=== PATIENT | male | born 1965 | race Two or more races ===

== ENCOUNTER → 2020-06-15 10:38 | Outpatient (BNVA) | payer SELFPAY | PROVIDERS: PCP Internal Medicine; Visit Provider Physician Assistant Medical | DX: Z02.79 Encounter for issue of other medical certificate (principal) ==

== ENCOUNTER → 2021-06-15 13:03 | Outpatient (BNVA) | payer SELFPAY | PROVIDERS: PCP Internal Medicine; Visit Provider Physician Assistant Medical | DX: Z02.79 Encounter for issue of other medical certificate (principal) ==

== ENCOUNTER → 2022-06-02 10:16 | Outpatient (BNVA) | payer SELFPAY | PROVIDERS: PCP Internal Medicine; Visit Provider Physician Assistant Medical | DX: Z02.79 Encounter for issue of other medical certificate (principal) ==

== ENCOUNTER → 2023-06-15 08:35 | Outpatient (BNVA) | payer SELFPAY | PROVIDERS: PCP Internal Medicine; Visit Provider Physician Assistant | DX: Z02.79 Encounter for issue of other medical certificate (principal) ==

== ENCOUNTER → 2024-06-26 08:33 | Outpatient (BNVA) | payer SELFPAY | PROVIDERS: PCP Internal Medicine; Visit Provider Physician Assistant | DX: Z02.79 Encounter for issue of other medical certificate (principal) ==

== ENCOUNTER 2024-11-12 21:07 | Emergency (ER) | payer OTHER, SELFPAY ==
--- NOTE | ~2024-11-12 | XR_ITS ---
CLINICAL HISTORY: sudden onset of pain with edema 2 view right foot Comparison: None Findings: Bones intact. No dislocations. No significant arthritic change or erosions. No ankle effusion. No radiopaque foreign body. IMPRESSION: 1. No acute findings. This document has been electronically signed by: Gildardo Prabhakar MD on 11/13/2024 00:56:44
--- NOTE | ~2024-11-12 | XR_ITS ---
CLINICAL HISTORY: sudden onset of pain with edema 3 view right ankle Comparison: None Findings: There is an enthesophyte at the insertion of the plantar fascia on the inferior calcaneus. No significant loss of joint space, osteophytes, or erosions. No ankle effusion. No radiopaque foreign body. IMPRESSION: 1. No acute findings. This document has been electronically signed by: Gildardo Prabhakar MD on 11/13/2024 00:56:18
[2024-11-12 21:44] VITALS: BP 168/78; PULSE 95; RESP 18; TEMP 36.9; O2SAT 98; BMI 27.8
[2024-11-12 22:33] LABS: Basophils Absolute Auto 0.1 X10*3/uL (0.0-0.2); Basophils Percent Auto 0.6 % (0-2); Eosinophils Absolute Auto 0.1 X10*3/uL (0.0-0.4); Eosinophils Percent Auto 0.7 % (0-4); Hematocrit 45.7 % (42.0-52.0); Hemoglobin 16.8 g/dl (14.0-18.0); Imm Gran Abs Auto 0.08 X10*3/uL (0.00-0.03); Imm Gran Pct Auto 0.8 % (0.0-0.4); Lymphocytes Absolute Auto 2.1 X10*3/uL (1.2-4.9); Lymphocytes Percent Auto 19.7 % (20-40); MANUAL DIFF FLAG NO; Mean Corpuscular HGB Conc 36.8 g/dl (31.0-36.0); Mean Corpuscular Hemoglobin 30.5 pg (27.0-33.0); Mean Corpuscular Volume 82.9 fL (80.0-98.0); Mean Platelet Volume 11.7 fL (9.4-12.4); Monocytes Absolute Auto 0.8 X10*3/uL (0.1-1.2); Monocytes Percent Auto 7.8 % (2-11); Neutrophils Absolute Auto 7.3 x10*3/uL (2.0-8.3); Neutrophils Percent Auto 70.4 % (45-73); Platelet Count 193 X10*3/uL (160-400); Red Blood Count 5.51 X10*6/uL (4.60-5.80); Red Cell Distribution Width 11.9 % (11.0-16.0); White Blood Count 10.4 X10*3/uL (4.8-10.8)
[2024-11-12 22:35] LABS: Lactic Acid 1.4 mmol/L (0.5-2.0)
[2024-11-12 22:55] LABS: Alanine Aminotransferase 32 U/L (0-40); Albumin Level 4.2 g/dL (3.5-5.0); Alkaline Phosphatase 126 U/L (39-117); Anion Gap 13 (12-20); Aspartate Amino Transferase 18 U/L (5-37); Bilirubin Total 0.7 mg/dL (0.0-1.0); Blood Urea Nitrogen 14 mg/dL (9-16); Calcium 9.9 mg/dL (8.4-10.2); Carbon Dioxide 27 mmol/L (22-29); Chloride 101 mmol/L (96-108); Creatinine Clr Calc Pharmacy 75.7; Estimated Glomerular Filt Rate > 60; Glucose Random 352 mg/dL (60-115); Sodium 137 mmol/L (135-145); Total Protein 8.1 g/dL (6.5-8.0)
--- NOTE | 2024-11-12 22:55 | PC.NURSE ---
Critical glucose taken from lab 352. No provider sign up yet
[2024-11-12 23:11] LABS: Appearance Urine Clear; Color Urine Yellow; Glucose Urine UA >=1000 mg/dL (Negative); Leukocyte Esterase Urine Negative (Negative); Nitrite Urine Negative (Negative); PH 7.5 (5.0-9.0); Specific Gravity - Urine >= 1.030 (1.005-1.025); UMIC TRIGGER UACC YES; Urine Blood Negative (Negative); Urine Ketones Trace mg/dL (Negative); Urine Protein Negative (Neg-Trace)
[2024-11-12 23:21] LABS: Bacteria Urine None Seen (None Seen); Hyaline Casts Urine 0-2 /LPF (0-2); RBC Urine 0-2 /HPF (0-2); Squamous Epithelial Cell Urine 0-2 /HPF (0-2); WBC Urine 0-5 /HPF (0-5)
[2024-11-13 00:27] VITALS: BP 166/92; PULSE 80; RESP 18; TEMP 37; O2SAT 97
--- NOTE | 2024-11-13 01:07 | ED_ITS ---
HPI - General Adult General Chief complaint: Extremity Problem Stated complaint: R foot pain Time Seen by Provider: 11/13/24 00:41 Source: patient, RN notes reviewed and old records reviewed Mode of arrival: ambulatory Limitations: no limitations History of Present Illness ED Provider: Nery HUA narrative: 59 old male past medical history significant for diabetes, noncompliant with his metformin presents for evaluation of right foot redness extending from his right 3rd toe up to his ankle. He denies any pain to the area. He denies any fevers, chills pain Denies any injuries. He denies any calf pain, knee pain Related Data Previous Rx's ?Medication ?Instructions ?Recorded cephalexin 500 mg tablet 500 mg PO QID #40 tabs 11/13/24 doxycycline hyclate 100 mg tablet 100 mg PO BID #20 tabs 11/13/24 metformin 1,000 mg tablet 1,000 mg PO BID #60 tabs 11/13/24 Allergies Allergy/AdvReac Type Severity Reaction Status Date / Time No Known Allergies Allergy Verified 11/12/24 21:44 [No Known Allergies*] Review of Systems 2 Constitutional: Constitutional: Denies body ache(s), Denies chills and Denies fever(s) Eyes: Eyes: Denies blurry vision ENT: Denies vertigo Cardiovascular: Cardiovascular: Denies chest pain, Denies chest pain at rest and Denies dyspnea Respiratory: Respiratory: Denies cough and Denies dyspnea Gastrointestinal: Gastrointestinal: Denies abdominal pain Musculoskeletal: Musculoskeletal: Reports arthralgias, Reports joint swelling and Denies limited range of motion Integumentary/Breasts: Skin/Breast: Reports erythema Neurologic: Denies vertigo PMFSH Social History Social History Smoked in Last 30 Days: No Use of substances other than those prescribed or required for medical reasons: No Advance Directives: No Advance Directives Information Provided: No Do you have a plan to hurt others: No Plan Physical Exam ED Vital Signs: Vital Signs - 24 hr 11/12/24 21:44 11/13/24 00:27 11/13/24 01:23 Temperature 98.4 F 98.6 F 98.0 F Pulse Rate 95 80 79 Respiratory Rate 18 18 16 Blood Pressure 168/78 H 166/92 H 158/90 H Pulse Oximetry 98 97 96 Oxygen Delivery Method Room Air Room Air Room Air 11/13/24 01:24 Temperature 98.0 F Pulse Rate 79 Respiratory Rate 16 Blood Pressure 158/90 H Pulse Oximetry 96 Oxygen Delivery Method Room Air BMI result Body Mass Index 27.8 Const General: healthy appearing, comfortable, no acute distress, alert and awake Nutritional Appearance: well nourished Orientation/consciousness: patient oriented x3 HENMT Head: Yes normocephalic and Yes atraumatic Neck Neck: Yes full ROM Resp Effort & Inspection: normal respiratory effort, able to speak in complete sentences and not labored Skin Other: patient has erythema with edema starting at the right 3rd toe in the dorsal surface extending on the dorsal surface of the right foot up to about the level of the ankle. No streaking erythema. No calf tenderness, negative Homans sign. We will put wound duty wounds, no fluctuance or purulence. General skin exam: elasticity normal Neuro General: patient oriented x3 Cranial nerves: Yes Bilaterally intact EOM present Cognition (Neuro): normal cognition Extrem Other: Moving all extremities well without any obvious deformities Medications Administered Discontinued Medications Generic Name Dose Route Start Last Admin Trade Name Freq PRN Reason Stop Dose Admin Cephalexin HCl 500 mg 11/13/24 01:09 11/13/24 01:18 Cephalexin 500 Mg Capsule PO 11/13/24 01:10 500 mg ONCE ONE Administration Doxycycline Monohydrate 100 mg 11/13/24 01:09 11/13/24 01:18 Doxycycline Monohydrate 100 Mg Capsule PO 11/13/24 01:10 100 mg ONCE ONE Administration Medical Decision Making Medical Decision Making [facility] Narrative: 59-year-old male presents for evaluation of atraumatic right foot pain and swelling. He appears to have a mild cellulitis starting with the cracked skin in between the right 2nd and 3rd toes. No evidence of DVT, no evidence of osteomyelitis or sepsis. We will treat with doxycycline and cephalexin. His glucose was elevated. No evidence of DKA. he has been noncompliant with his metformin. I discussed the importance of restarting his metformin and we will discharge the patient with cephalexin and doxycycline for cellulitis of the right foot Differential Diagnosis Differential Diagnoses: The differential diagnosis associated with the presentation includes cellulitis Gout DVT less likely Sepsis Osteomyelitis Admission/Observation Consideration of admission/observation: Escalation of care including admission/observation considered no evidence of sepsis and the patient has not yet trialed oral antibiotics. Plan for discharge Lab Data [facility] Lab Attestation statement: I reviewed the patient's lab results. no leukocytosis or anemia. Normal platelet count. No significant electrolyte abnormalities outside of hyperglycemia. 11/12/24 22:14 11/12/24 22:14 Labs: Lab Results 11/12/24 11/12/24 Range/Units 22:14 23:01 WBC 10.4 (4.8-10.8) X10*3/uL RBC 5.51 (4.60-5.80) X10*6/uL Hgb 16.8 (14.0-18.0) g/dl Hct 45.7 (42.0-52.0) % MCV 82.9 (80.0-98.0) fL MCH 30.5 (27.0-33.0) pg MCHC 36.8 H (31.0-36.0) g/dl RDW 11.9 (11.0-16.0) % Plt Count 193 (160-400) X10*3/uL MPV 11.7 (9.4-12.4) fL Immature Gran % (Auto) 0.8 H (0.0-0.4) % Neut % (Auto) 70.4 (45-73) % Lymph % (Auto) 19.7 L (20-40) % [place] % (Auto) 7.8 (2-11) % Eos % (Auto) 0.7 (0-4) % Baso % (Auto) 0.6 (0-2) % Lymph # (Auto) 2.1 (1.2-4.9) X10*3/uL [place] # (Auto) 0.8 (0.1-1.2) X10*3/uL Eos # (Auto) 0.1 (0.0-0.4) X10*3/uL Baso # (Auto) 0.1 (0.0-0.2) X10*3/uL Abs Immat Gran (auto) 0.08 H (0.00-0.03) X10*3/uL Absolute Neuts (auto) 7.3 (2.0-8.3) x10*3/uL Absolute Nucleated RBC 0.000 (0.0-0.012) X10*3/uL Nucleated RBC % (auto) 0.0 (0.0-0.2) /100WBC Sodium 137 (135-145) mmol/L Potassium 4.0 (3.3-5.1) mmol/L Chloride 101 (96-108) mmol/L Carbon Dioxide 27 (22-29) mmol/L Anion Gap 13 (12-20) BUN 14 (9-16) mg/dL Creatinine 1.02 (0.5-1.4) mg/dL Estim Creat Clear Calc 75.7 Estimated GFR > 60 Random Glucose 352 H* (60-115) mg/dL Lactic Acid 1.4 (0.5-2.0) mmol/L Calcium 9.9 (8.4-10.2) mg/dL Total Bilirubin 0.7 (0.0-1.0) mg/dL AST 18 (5-37) U/L ALT 32 (0-40) U/L Alkaline Phosphatase 126 H (39-117) U/L Total Protein 8.1 H (6.5-8.0) g/dL Albumin 4.2 (3.5-5.0) g/dL Urine Color Yellow Urine Appearance Clear Urine pH 7.5 (5.0-9.0) Ur Specific [place] >= 1.030 H (1.005-1.025) Urine Protein Negative (Neg-Trace) mg/dL Urine Glucose (UA) >=1000 H (Negative) mg/dL Urine Ketones Trace (Negative) mg/dL Urine Blood Negative (Negative) Urine Nitrite Negative (Negative) Ur Leukocyte Esterase Negative (Negative) Urine RBC 0-2 (0-2) /HPF Urine WBC 0-5 (0-5) /HPF Ur Squamous Epith Cells 0-2 (0-2) /HPF Urine Bacteria None Seen (None Seen) Hyaline Casts 0-2 (0-2) /LPF Radiology Impression Discussion of test interpretation with radiology: I have reviewed the radiologist's reading. Radiologist Impression: Findings: Bones intact. No dislocations. No significant arthritic change or erosions. No ankle effusion. No radiopaque foreign body. IMPRESSION: 1. No acute findings. This document has been electronically signed by: Gildardo Prabhakar MD on 11/13/2024 00:56:44 Findings: There is an enthesophyte at the insertion of the plantar fascia on the inferior calcaneus. No significant loss of joint space, osteophytes, or erosions. No ankle effusion. No radiopaque foreign body. IMPRESSION: 1. No acute findings. This document has been electronically signed by: Gildardo Prabhakar MD on 11/13/2024 00:56:18 Discharge Plan Discharge Clinical Impression: Ankle cellulitis, Acute hyperglycemia Patient Disposition: Home, Self-Care Instructions: Cellulitis (ED), Diabetic Hyperglycemia (ED) Additional Instructions: take both antibiotics as prescribed for cellulitis of the Right foot take these medications with food. I also recommend that you start taking metformin again as your glucose was significantly elevated. Follow-up with your primary doctor, return for new or worsening symptoms Prescriptions: New doxycycline hyclate 100 mg tablet 100 mg PO BID Qty: 20 0RF cephalexin 500 mg tablet 500 mg PO QID Qty: 40 0RF metformin 1,000 mg tablet 1,000 mg PO BID Qty: 60 0RF Interventions: ED Discharge Assessment Last Done: 11/13/24 01:24 Discharge Date/Time: 11/13/24 01:25 Print Language: [place]
[2024-11-13] MEDS: Doxycycline Monohydrate 100 MG CAPSULE PO (01:18)
[2024-11-13] MEDS: cephALEXin 500 MG CAPSULE PO (01:18)
[2024-11-13 01:23] VITALS: BP 158/90; PULSE 79; RESP 16; TEMP 36.7; O2SAT 96
[2024-11-13 01:24] VITALS: BP 158/90; PULSE 79; RESP 16; TEMP 36.7; O2SAT 96
== END 2024-11-13 01:25 | disposition home or self-care (01) ==
PROVIDERS: Emergency Provider Emergency Medicine; PCP Internal Medicine
DX: L03.115 Cellulitis of right lower limb (principal); E11.65 Type 2 diabetes mellitus with hyperglycemia; M79.671 Pain in right foot
CPT/HCPCS: 36415; 73610; 73630; 80053; 81001; 83605; 85025; 87040; 99283; 99284

== ENCOUNTER → 2024-11-12 21:55 | Outpatient (BNV) | payer OTHER, SELFPAY | PROVIDERS: PCP Internal Medicine; Visit Provider Radiology Diagnostic Radiology | DX: M25.571 Pain in right ankle and joints of right foot (principal); R60.0 Localized edema | CPT/HCPCS: 73610; 73630 ==

== ENCOUNTER → 2025-07-01 07:46 | Outpatient (BNVA) | payer SELFPAY | PROVIDERS: PCP Internal Medicine; Visit Provider Physician Assistant Medical | DX: Z02.79 Encounter for issue of other medical certificate (principal) ==